=== PATIENT | female | born 1970 | race Caucasian/White ===

== ENCOUNTER 2016-12-26 06:37 | Emergency (ER) | payer MEDICAID, OTHER ==
[~2016-12-26] VITALS: Ht 165.1 cm; Wt 93.0 kg
[2016-12-26 06:40] VITALS: Ht 165.1 cm; Wt 93.0 kg
[2016-12-26] MEDS ORDERED: KETOROLAC 30 MG INJ IM STA (07:13)
--- NOTE | 2016-12-26 07:20 | ERD ---
ER Documentation Chief Complaint Date/Time DATE: 12/26/16 TIME: 07:14 Chief Complaint b/l foot pain x 1 year HPI This 46-year-old female who presents emergency department today complaining of bilateral foot pain for the past year. Patient is here with her son who is very concerned about her because he states that she has been hiding this from him. States that a year ago she got x-rays and maybe was told that she has a bone spur but she is unsure. States patient getting shots and laser treatment on her feet that she states helps a little bit. Son is concerned that there is something worse going on because the pain is going up her foot. States he would like an MRI. States that she also has some left arm pain and pain that goes down her right leg. States she is on her feet all day long at work. Denies any significant trauma, fevers or chills ROS All systems reviewed and are negative except as per history of present illness. Medications Home Meds Active Scripts Acetaminophen* (Tylophen*) 500 Mg Capsule, 1 CAP PO Q6H Y for PAIN AND OR ELEVATED TEMP, #30 CAP Prov:MELISSA DUNLAP PA-C 12/26/16 Naproxen* (Naprosyn*) 500 Mg Tablet, 500 MG PO BID Y for PAIN AND/OR INFLAMMATION, #30 TAB Prov:MELISSA DUNLAP PA-C 12/26/16 Tramadol HCl (Tramadol HCl) 50 Mg Tablet, 50 MG PO Q4 Y for PAIN, #20 TAB Prov:MELISSA DUNLAP PA-C 12/26/16 Allergies Allergies: Coded Allergies: No Known Allergy (Unverified , 12/26/16) PMhx/Soc Medical and Surgical Hx: pt denies Medical Hx, pt denies Surgical Hx Hx Alcohol Use: No Hx Substance Use: No Hx Tobacco Use: No Smoking Status: Never smoker Physical Exam Vitals Vital Signs Date Time Temp Pulse Resp B/P Pulse Ox O2 Delivery O2 Flow Rate FiO2 12/26/16 06:40 98.2 70 16 165/92 99 Physical Exam Const: No acute distress Head: Atraumatic Eyes: Normal Conjunctiva ENT: Normal External Ears, Nose and Mouth. Neck: Full range of motion..~ No meningismus. Resp: Clear to auscultation bilaterally Cardio: Regular rate and rhythm, no murmurs Abd: Soft, non tender, non distended. Normal bowel sounds Skin: No petechiae or rashes Back: No midline or flank tenderness. Full active range of motion. MSK: Left arm with full active range of motion. No effusion. No ecchymosis. No obvious deformity. Pulses 2+. Distal neurovascularly intact Bilateral feet with no obvious deformity. Mild effusion over medial plantar surface. Tenderness palpation calcaneus and arch of foot. Patient wearing orthotics. Pulses 2+ Neur: Awake and alert Psych: Normal Mood and Affect Results 24 hrs Current Medications Medications (Trade) Dose Ordered Sig/Kirill Route PRN Reason Start Time Stop Time Status Last Admin Dose Admin Ketorolac Tromethamine (Toradol) 30 mg ONCE STAT IM 12/26/16 07:13 12/26/16 07:15 DC 12/26/16 07:33 DIAGNOSTIC IMAGING REPORT Patient: MARISELA SEGUNDO : 1970 Age: 46 Sex: F MR #: [id number] DOS: 12/26/16 0000 Ordering MD: MELISSA DUNLAP PA-C Location: [facility] Room/Bed: PROCEDURE: Bilateral foot study CLINICAL INDICATION: heel pain TECHNIQUE: AP, lateral, oblique images were obtained of the right and left feet. COMPARISON: None. FINDINGS: There are posterior plantar are and posterior spurs involving the right and left calcaneal bones. There are no acute fractures or dislocations. The bony mineralization is normal. No focal bony blastic or lytic lesions. There is no evidence of erosions. The soft tissues are unremarkable. IMPRESSION: 1. No evidence acute fractures dislocations or erosions. 2. Spurs involving the right and left calcaneal bones. RPTAT:AAJJ Physician Tamra Date Time Electronically viewed and signed by Physician Tamra on 12/26/2016 08:58 BM/ CC: MELISSA DUNLAP PA-C DIAGNOSTIC IMAGING REPORT Patient: MARISELA SEGUNDO : 1970 Age: 46 Sex: F MR #: [id number] DOS: 12/26/16 0000 Ordering MD: MELISSA DUNLAP PA-C Location: [facility] Room/Bed: PROCEDURE: Cervical spine series CLINICAL INDICATION: Pain TECHNIQUE: AP lateral and odontoid views of the cervical spine were obtained COMPARISON: No FINDINGS: There is mild reversal of the normal cervical lordosis. There is no evidence of acute fractures or subluxations. The bony mineralization is normal. No focal bony blastic or lytic lesions. The posterior elements are intact. IMPRESSION: No evidence of acute fractures or subluxations. RPTAT:AAJJ Eulalia Knott Physician Date Time Electronically viewed and signed by Eulalia Knott Physician on 12/26/2016 08:47 BM/ CC: MELISSA DUNLAP PA-C DIAGNOSTIC IMAGING REPORT Patient: MARISELA SEGUNDO : 1970 Age: 46 Sex: F MR #: [id number] DOS: 12/26/16 0000 Ordering MD: MELISSA DUNLAP PA-C Location: [facility] Room/Bed: PROCEDURE: Lumbar spine series CLINICAL INDICATION: Pain TECHNIQUE: AP, lateral and coned lateral views of the lumbar spine were obtained. COMPARISON: None FINDINGS: There is no evidence of acute fractures or subluxations. There is exaggerated lumbar lordosis. There is mild degenerate enthesopathy of the lower thoracic and lumbar spine. There are no focal bony blastic or lytic lesions. The posterior elements appear intact. There are multiple calcified gallstones. IMPRESSION: 1. Mild degenerative changes without acute fractures or subluxations. 2. Multiple calcified gallstones. RPTAT:AAJJ B Knott, Physician Date Time Electronically viewed and signed by Eulalia Knott Physician on 12/26/2016 08:54 BM/ CC: MELISSA DUNLAP PA-C Procedures/MDM This 46-year-old female who presents the emergency department today for bilateral foot pain for over a year, left arm pain and right leg pain. Patient is most concerned about her feet. I did offer to obtain images for the patient given that patient is really unsure as to whether she does have a heel spur not and son is very concerned about her. Per the radiology report images of bilateral feet show no evidence of acute fracture dislocation or erosion. There is no focal bony blastic or lytic lesions. Soft tissues are unremarkable. There are spurs involving the right and left calcaneal bones. This is likely the source of the patient's heel pain in addition to plantar fasciitis peer Images of the cervical spine show no evidence of acute fracture or subluxation. Images of the lumbar spine show mild degenerative changes without acute fractures or subluxations. There are multiple calcified gallstones. Patient did not report any abdominal pain. Patient has full active range of motion of her left arm. I have low suspicion for DVT. Patient is also afebrile and otherwise well-appearing. She does not appear to have any loss of bowel or bladder control and I suspect that her leg pain and arm pain are coming from her cervical and her lumbar spine Patient was given a Toradol injection here in the emergency department. I will give her a short course of tramadol for breakthrough pain. We will also give her a prescription for Naprosyn. Patient was instructed in stretching exercises and treatment for plantar fascial pain. Patient does not currently have a primary care doctor and I have explained to the son that this would be best to get a primary care doctor so that she may get referral to orthopedic or podiatry specialist. She was given a list of resources. At this time the patient is stable for discharge and outpatient management. Patient should follow up with their PCP in the next 1-2 days. They may return to the emergency department sooner for any persistent or worsening of symptoms. Patient and son understood and agreed with the plan. Departure Diagnosis: Primary Impression: Foot pain Laterality: bilateral Qualified Code: M79.671 - Pain in both feet Additional Impression: Back pain Back pain location: low back pain Chronicity: chronic Back pain laterality : bilateral Sciatica presence: unspecified whether sciatica present Qualified Code: M54.5 - Chronic bilateral low back pain, with sciatica presence unspecified Condition: MELISSA Pacheco PA-C Dec 26, 2016 07:20
--- NOTE | 2016-12-26 08:48 | RADRPT ---
PROCEDURE: Cervical spine series CLINICAL INDICATION: Pain TECHNIQUE: AP lateral and odontoid views of the cervical spine were obtained COMPARISON: No FINDINGS: There is mild reversal of the normal cervical lordosis. There is no evidence of acute fractures or subluxations. The bony mineralization is normal. No focal bony blastic or lytic lesions. The post erior elements are intact. IMPRESSION: No evidence of acute fractures or subluxations. RPTAT:AAJJ Physician Tamra Date Time Electronically viewed and signed by Eulalia Knott Physician on 12/26/2016 08:47 BM/
--- NOTE | 2016-12-26 08:54 | RADRPT ---
PROCEDURE: Lumbar spine series CLINICAL INDICATION: Pain TECHNIQUE: AP, lateral and coned lateral views of the lumbar spine were obtained. COMPARISON: None FINDINGS: There is no evidence of acute fractures or subluxations. There is exaggerated lumbar lordosis. The re is mild degenerate enthesopathy of the lower thoracic and lumbar spine. There are no focal bony blastic or lytic lesions. The posterior elements appear intact. There are multiple calcified gall stones. IMPRESSION: 1. Mild degenerative changes without acute fractures or subluxations. 2. Multiple calcified gallstones. RPTAT:AAJJ Physician Tamra Date Time Electronically viewed and signed by Physician Tamra on 12/26/2016 08:54 /
--- NOTE | 2016-12-26 08:58 | RADRPT ---
PROCEDURE: Bilateral foot study CLINICAL INDICATION: heel pain TECHNIQUE: AP, lateral, oblique images were obtained of the right and left feet. COMPARISON: None. FINDINGS: There are posterior plantar are and posterior spurs involving the right and left calcaneal bones. T here are no acute fractures or dislocations. The bony mineralization is normal. No focal bony adelfo tic or lytic lesions. There is no evidence of erosions. The soft tissues are unremarkable. IMPRESSION: 1. No evidence acute fractures dislocations or erosions. 2. Spurs involving the right and left calcaneal bones. RPTAT:AAJJ Physician Tamra Date Time Electronically viewed and signed by Eulalia Knott Physician on 12/26/2016 08:58 BM/
[2016-12-26] MEDS ORDERED: ACET500C5 PO (09:22)
[2016-12-26] MEDS ORDERED: NAPR-260 PO (09:22)
[2016-12-26] MEDS ORDERED: TRAM50TA2 PO (09:22)
== END 2016-12-26 09:48 | disposition home or self-care (01) ==
LOC: FTE 06:37
DX: M79.671 Pain in right foot (principal); M79.672 Pain in left foot; M54.5 Low back pain
CPT/HCPCS: 72040; 72100; 73630; J1885; 96372

== ENCOUNTER 2018-02-27 11:32 | Emergency (ER) | END 2018-02-27 14:09 | disposition home or self-care (01) ==

== ENCOUNTER 2019-01-23 09:40 | Emergency (ER) | payer SELFPAY ==
[~2019-01-23] VITALS: Ht 160 cm; Wt 91.3 kg
[~2019-01-23 09:40] MED LIST: ACET500C5 PO; AMOX1TAB10 PO; CYCL10TA7 PO; DIAZ5TAB PO; HYDR-4011 PO; IBUP800T48 PO; MED4DP PO; NAPR-985 PO; TRAM50TA2 PO
[2019-01-23 09:44] VITALS: Ht 160 cm; Wt 91.3 kg
[2019-01-23] MEDS ORDERED: KETOROLAC 30 MG INJ IV STA (10:11)
[2019-01-23] MEDS ORDERED: SOD CHLORIDE 0.9% 1,000 ML IV STA (10:11)
[2019-01-23] MEDS ORDERED: DIAZEPAM 5 MG/ML SYG IV ONE (10:30)
[2019-01-23 12:27] VITALS: BP 126/72; PULSE 78; RESP 18
--- NOTE | 2019-01-23 13:31 | ERD ---
ER Documentation Chief Complaint Chief Complaint RIGHT ABD PAIN RADIATING TO BACK,NO N/V HPI Translation services were utilized during this patient's encounter Language: Urdu Source: In person 48-year-old female who presents to the emergency room complaining of bilateral back pain started in the right now bilateral lumbar. Slight radiation to the left lower leg. Patient denies any recent trauma or injury. No dysuria urgency or frequency. The patient does describe a mild colicky component but also has worsening symptoms with rotational movement. She has had some chronic back pain in the past. She denies any fevers chills chest pain or shortness of breath. ROS All systems reviewed and are negative except as per history of present illness. Medications Home Meds Active Scripts Diazepam* (Valium*) 5 Mg Tablet, 5 MG PO Q8 PRN for MUSCLE SPASMS, #10 TAB Prov:QUINN MAGDALENO MD 01/23/19 Ibuprofen* (Motrin*) 800 Mg Tab, 800 MG PO Q6H PRN for PAIN AND OR ELEVATED TEMP, #30 TAB Prov:QUINN MAGDALENO MD 01/23/19 Naproxen* (Naprosyn*) 500 Mg Tablet, 500 MG PO BID PRN for PAIN AND/OR INFLAMMATION, #30 TAB Prov:MIKE WATSON PA-C 02/27/18 Hydrocodone/Acetaminophen (Shubert 5-325 Tablet) 1 Each Tablet, 1 TAB PO Q6H PRN for PAIN, #7 TAB Prov:MIKE WATSON PA-C 02/27/18 Methylprednisolone* (Medrol* DOSE PACK) 4 Mg/Dose-Pack Tab.ds.pk, 4 MG PO . DIRECTED, #1 PACKET Prov:MIKE WATSON PA-C 02/27/18 Amoxicillin/Potassium Clav (Amox-Clav 875-125 mg Tablet) 875-125 mg Tab, 1 TAB PO BID for 7 Days, #14 TAB Prov:MIKE WATSON PA-C 02/27/18 Cyclobenzaprine Hcl* (Cyclobenzaprine Hcl*) 10 Mg Tablet, 10 MG PO QHS, #7 TAB Prov:MELISSA DUNLAP PA-C 02/16/18 Naproxen* (Naprosyn*) 500 Mg Tablet, 500 MG PO BID PRN for PAIN AND/OR INFLAMMATION, #30 TAB Prov:MELISSA DUNLAPC 02/16/18 Tramadol HCl (Tramadol HCl) 50 Mg Tablet, 50 MG PO Q6 PRN for PAIN, #20 TAB Prov:MELISSA DUNLAP-C 02/16/18 Acetaminophen* (Tylophen*) 500 Mg Capsule, 1 CAP PO Q6H PRN for PAIN AND OR ELEVATED TEMP, #30 CAP Prov:MELISSA DUNLAPC 12/26/16 Naproxen* (Naprosyn*) 500 Mg Tablet, 500 MG PO BID PRN for PAIN AND/OR INFLA MMATION, #30 TAB Prov:MELISSA DUNLAPC 12/26/16 Tramadol HCl (Tramadol HCl) 50 Mg Tablet, 50 MG PO Q4 PRN for PAIN, #20 TAB Prov:MELISSA DUNLAP-C 12/26/16 Allergies Allergies: Coded Allergies: No Known Allergy (Unverified , 02/16/18) PMhx/Soc History of Surgery: Yes (RIGHT LEG SX) Anesthesia Reaction: No Hx Neurological Disorder: No Hx Respiratory Disorders: No Hx Cardiac Disorders: Yes (HTN) Hx Psychiatric Problems: Yes (ANXIETY, PANIC ATTACKS) Hx Miscellaneous Medical Probl: Yes (PLANTAR FACITIS, GALLBLADDER STONES, HYPOTHYROIDISM) Hx Alcohol Use: No Hx Substance Use: No Hx Tobacco Use: No Smoking Status: Never smoker FmHx Family History: No diabetes Physical Exam Vitals Vital Signs Date Temp Pulse Resp B/P (MAP) Pulse Ox O2 O2 Flow FiO2 Time Delivery Rate 01/23/19 98.0 78 18 126/72 98 Room Air 12:27 (90) 01/23/19 97.6 68 17 129/70 98 09:44 (89) Physical Exam General: Well developed, well nourished, no acute distress Head: Normocephalic, atraumatic. Eyes: Pupils equally reactive, EOM intact ENT: Moist mucous membranes Neck: Supple, no lymphadenopathy Respiratory: Lungs clear bilaterally, no distress Cardiovascular: RRR, no murmurs, rubs, or gallops Abdominal: Soft, non-tender, non-distended, no peritoneal signs Back: Reproducible paraspinal lumbar back tenderness without midline tenderness deformities or step-offs. No CVAT bilaterally. : Deferred MSK: No edema, no unilateral swelling, 5/5 strength Neurologic: Alert and oriented, moving all extremities, normal speech, no focal weakness, no cerebellar signs Skin: No rash Psych: Normal mood Result Diagram: 01/23/19 1022 01/23/19 1022 Results 24 hrs Laboratory Tests Test 01/23/19 10:22 01/23/19 10:35 White Blood Count 9.2 10^3/ul Red Blood Count 4.99 10^6/ul Hemoglobin 14.9 g/dl Hematocrit 46.2 % Mean Corpuscular Volume 92.6 fl Mean Corpuscular Hemoglobin 29.9 pg Mean Corpuscular Hemoglobin Concent 32.3 g/dl Red Cell Distribution Width 14.0 % Platelet Count 259 10^3/UL Mean Platelet Volume 11.1 fl Immature Granulocytes % 0.300 % Neutrophils % 57.6 % Lymphocytes % 31.8 % Monocytes % 8.3 % Eosinophils % 1.5 % Basophils % 0.5 % Nucleated Red Blood Cells % 0.0 /100WBC Immature Granulocytes # 0.030 10^3/ul Neutrophils # 5.3 10^3/ul Lymphocytes # 2.9 10^3/ul Monocytes # 0.8 10^3/ul Eosinophils # 0.1 10^3/ul Basophils # 0.1 10^3/ul Nucleated Red Blood Cells # 0.0 10^3/ul Urine Color YELLOW Urine Clarity SLIGHTLY CLOUDY Urine pH 6.0 Urine Specific [place] 1.027 Urine Ketones NEGATIVE mg/dL Urine Nitrite NEGATIVE mg/dL Urine Bilirubin NEGATIVE mg/dL Urine Urobilinogen NEGATIVE mg/dL Urine Leukocyte Esterase NEGATIVE Lizbeth/ul Urine Microscopic RBC 21 /HPF Urine Microscopic WBC 5 /HPF Urine Squamous Epithelial Cells FEW /HPF Urine Bacteria FEW /HPF Urine Mucus FEW /HPF Urine Hemoglobin NEGATIVE mg/dL Urine Glucose NEGATIVE mg/dL Urine Total Protein NEGATIVE mg/dl Sodium Level 138 mmol/L Potassium Level 3.9 mmol/L Chloride Level 104 mmol/L Carbon Dioxide Level 27 mmol/L Anion Gap 7 Blood Urea Nitrogen 22 mg/dl Creatinine 0.66 mg/dl Est Glomerular Filtrat Rate mL/min > 60 mL/min Glucose Level 96 mg/dl Calcium Level 8.9 mg/dl Total Bilirubin 1.4 mg/dl Direct Bilirubin 0.00 mg/dl Indirect Bilirubin 1.4 mg/dl Aspartate Amino Transf (AST/SGOT) 23 IU/L Alanine Aminotransferase (ALT/SGPT) 27 IU/L Alkaline Phosphatase 47 IU/L Total Protein 7.7 g/dl Albumin 4.2 g/dl Globulin 3.50 g/dl Albumin/Globulin Ratio 1.20 Lipase 59 U/L POC Beta HCG, Qualitative NEGATIVE Current Medications Medications Dose Sig/Kirill Start Time Status Last (Trade) Ordered Route PRN Stop Time Admin Dose Reason Admin Sodium 1,000 ml @ Q1H STAT 01/23/19 DC 01/23/19 Chloride 1,000 mls/hr IV 10:11 10:32 01/23/19 11:10 Ketorolac 30 mg ONCE STAT 01/23/19 DC 01/23/19 Tromethamine IV 10:11 10:32 (Toradol) 01/23/19 10:14 Diazepam 5 mg ONCE ONCE 01/23/19 DC 01/23/19 (Valium) IV 10:30 10:32 01/23/19 10:31 Procedures/MDM EKG, MONITORS, & DIAGNOSTIC IMAGING: CT a/p IMPRESSION: 1. Cholelithiasis, without gross evidence of inflammatory changes. 2. Fatty liver. 3. No renal/ureteric calculi. No evidence of obstructive uropathy. 4. No evidence of bowel obstruction. The appendix is within normal limits. There is colonic diverticulosis. 5. No evidence of free fluid or free air. No gross focal fluid collections. RPTAT: AAPP LAB INTERPRETATION: I reviewed the laboratory testing and it shows no evidence of acute process MEDICAL DECISION MAKING: Clinical exam is most consistent with muscular skeletal etiology though CT to rule out stone would be reasonable. Patient otherwise is well-appearing without signs or symptoms concerning for cauda equina. The patient's low back pain is unlikely related to serious etiology. The patient exhibits no clinical signs or symptoms and has no history or risk factors to suggest cauda equina, cord compression, epidural abscess, epidural hematoma, acute aortic aneurysm or dissection. ER COURSE: * Patient was given pain medication and muscle relaxer medication with complete resolution of symptoms. Laboratory testing and diagnostic imaging is unrevealing other than microscopic hematuria. Outpatient follow-up discussed with the patient. Patient is safe for discharge. CONSULTATION: None DISPOSITION PLAN: The patient does not have an identifiable emergent medical condition that warrants inpatient hospitalization at this time. The patient is deemed safe for discharge with outpatient follow-up. We discussed follow up with the patient's primary care doctor within 24 to 48 hours as needed. We also discussed return to the emergency room for worsening symptoms or worsening condition. Outpatient referral: None required Discharge Medications: Motrin and Valium Departure Diagnosis: Primary Impression: Back pain Back pain location: low back pain Chronicity: acute Back pain laterality: bilateral Sciatica presence: without sciatica Qualified Codes: M54.5 - Low back pain Condition: Stable Patient Instructions: Back Pain (Acute Or Chronic) Referrals: [facility] Usted se robles hecho un examen mdico de control que le indica que no est en deb condicin que requiera tratamiento urgente en el Departamento de Emergencia. Un estudio ms profundo y el tratamiento de hutchison condicin pueden esperar sin ningn riesgo hasta que usted sea atendida/o en el consultorio de hutchison mdico o deb clnica. Es responsabilidad suya arreglar deb pedro para el seguimiento del shorty. MANEJO DE CONDICIONES NO URGENTES EN EL FUTURO 1) Si usted tiene un mdico de atencin primaria: Usted debera llamar a hutchison mdico de atencin primaria antes de venir al departamento de emergencia. Despus de las horas de consultorio, hutchison doctor o hutchison asociado/a est disponible por telfono. El mdico o enfermero de kirby en el servicio telefnico puede asesorarle por ole medio para atender el problema, o shorty contrario se puede programar deb pedro. 2) Si usted no tiene un mdico de atencin primaria: Llame al mdico o clnica de referencia que aparece abajo peter las horas de consultorio para hacer deb pedro para que le vean. CLINICAS: [facility] [phone] [address] [facility] [phone] [facility] [phone] [facility] [phone] [place] [id number] [phone] [facility]. [phone] [address] [facility]. [facility] () Usted se robles hecho un examen mdico de control que le indica que no est en deb condicin que requiera tratamiento urgente en el Departamento de Emergencia. Un estudio ms profundo y el tratamiento de hutchison condicin pueden esperar sin ningn riesgo hasta que usted sea atendida/o en el consultorio de hutchison mdico o deb clnica. Es responsabilidad suya arreglar deb pedro para el seguimiento del shorty. MANEJO DE CONDICIONES NO URGENTES EN EL FUTURO 1) Si usted tiene un mdico de atencin primaria: Usted debera llamar a hutchison mdico de atencin primaria antes de venir al departamento de emergencia. Despus de las horas de consultorio, hutchison doctor o hutchison asociado/a est disponible por telfono. El mdico o enfermero de kirby en el servicio telefnico puede asesorarle por ole medio para atender el problema, o shorty contrario se puede programar deb pedro. 2) Si usted no tiene un mdico de atencin primaria: Llame al mdico o condado institucions de referencia que aparece abajo peter las horas de consultorio para hacer deb pedro para que le vean. SI USTED NO PUEDE PAGAR PARA JEAN MARIE UN MEDICO puede ir a: [facility] [id number] [place] [address] [facility] [address] [place] [address] FOR[facility]LY [facility] [address] [place] [address] [facility] [address] [place] [address] Additional Instructions: There is a small amount of microscopic blood in the urine. If this does not improve over the next several weeks further investigation is necessary. Follow- up with primary care physician. Llame al doctor meggan sen (Referral Sources) MAANA y ileana deb PEDRO PARA DENTRO DE DEB SEMANA. Dgale a la secretaria que nosotros le instruimos hacer esta pedro.Avise o llame si hutchison condicin se empeora antes de la pedro. QUINN MAGDALENO MD Jan 23, 2019 13:31
== END 2019-01-23 12:29 | disposition home or self-care (01) ==
LOC: E/R 09:40
DX: M54.5 Low back pain (principal); I10 Essential (primary) hypertension; E03.9 Hypothyroidism, unspecified
CPT/HCPCS: 36415; 74176; 80053; 81001; 81003; 81025; 83690; 85025; 96361; 96374; 96375; 99285; J1885; J3360; J7030